=== PATIENT | female | born 1950 | race Caucasian/White ===

== ENCOUNTER 2019-08-21 21:47 | Emergency (ER) | payer MEDICARE ==
[~2019-08-21] VITALS: Ht 149.9 cm; Wt 74.5 kg
[2019-08-21 21:50] VITALS: BP 180/78
[2019-08-21] MEDS ORDERED: ATOR80TA59 PO (22:07)
[2019-08-21] MEDS ORDERED: METF-699 PO (22:07)
[2019-08-21] MEDS ORDERED: LEVO100T5 PO (22:07)
[2019-08-21] MEDS ORDERED: ENAL20TA PO (22:07)
[2019-08-21] MEDS ORDERED: LOPR1TAB7 PO (22:07)
== END 2019-08-22 00:55 | disposition left against medical advice (07) ==
LOC: M ED 21:47
DX: Z53.21 Procedure and treatment not carried out due to patient leaving prior to being seen by health care provider (principal)